=== PATIENT | female | born 1985 | race Caucasian/White ===

== ENCOUNTER → 2019-04-23 | Outpatient (REF) | payer OTHER ==
[2019-04-23 21:30] LABS: CHLAMYDIA DNA AMPLIFICATION NEGATIVE (NEGATIVE); GC DNA AMPLIFICATION NEGATIVE (NEGATIVE)
== END ==
LOC: M LAB REF 16:13
PROVIDERS: ATTEND Nurse Practitioner Primary Care
DX: R30.0 Dysuria (principal)

== ENCOUNTER 2023-05-14 08:39 | Day surgery (SDC) | payer OTHER ==
[~2023-05-14] VITALS: Ht 170.2 cm; Wt 64.9 kg
[~2023-05-14 08:39] MED LIST: DSS100CA PO; LIDOCAINE 2% 100MG/5ML SDV (FOR ANES.) As Ordered ONE; MIRA3350 PO; NS 1,000 ML IV ONE; propofoL 200 MG/20 ML VIAL As Ordered ONE
[2023-05-14 10:41] VITALS: BP 135/77; O2SAT 98
== END 2023-05-14 10:42 | disposition home or self-care (01) ==
LOC: M OPP 08:39
PROVIDERS: ATTEND Internal Medicine Gastroenterology
DX: K64.0 First degree hemorrhoids (principal); Z80.0 Family history of malignant neoplasm of digestive organs; R10.13 Epigastric pain; K59.00 Constipation, unspecified
CPT/HCPCS: 43239; 88305; G0105